=== PATIENT | female | born 2000 | race Caucasian/White ===

== ENCOUNTER 2018-07-27 00:04 | Emergency (ER) | payer SELFPAY ==
--- NOTE | 2018-07-27 00:43 | EDM.PDOC ---
ED HPI GENERAL MEDICAL PROBLEM - General Chief Complaint: Abdominal Pain Stated Complaint: ABD PAIN Time Seen by Provider: 07/27/18 00:34 Source of Information: Reports: Patient History Limitations: Reports: No Limitations - History of Present Illness INITIAL COMMENTS - FREE TEXT/NARRATIVE: Patient presents to the ER with complaints of right side abdominal pain. States awoke her at 0430 yesterday with sudden crampy pain. She states she has a constant ache with more crampy pain at times. No nausea/vomiting/diarrhea or constipation. Did have normal BM earlier today, no blood noted. Denies urinary complaints. Last LMP a month ago. Is a 1 para 0 with miscarriage and resulting D & C. Denies any fevers. Was able to eat today. Duration: Day(s):, Waxing/Waning Location: Reports: Abdomen Quality: Reports: Sharp, Stabbing Severity: Moderate Associated Symptoms: Denies: Chest Pain, Cough, Fever/Chills, Loss of Appetite, Nausea/Vomiting, Shortness of Breath, Weakness Right Abdominal Pain Score (Numeric/FACES): 5 - Related Data Allergies Allergy/AdvReac Type Severity Reaction Status Date / Time No Known Allergies Allergy Verified 07/27/18 00:07 Home Meds: Home Meds Etonogestrel [Nexplanon] 68 mg IMPLANT ASDIRECTED 07/27/18 [History] Past Medical History HEENT History: Reports: None Respiratory History: Reports: Asthma Genitourinary History: Reports: None 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 Psychiatric History: Reports: Anxiety, Depression Dermatologic History: Reports: Eczema, Other (See Below) Other Dermatologic History: hx ringworm in the past - Past Surgical History HEENT Surgical History: Reports: Adenoidectomy, Tonsillectomy Respiratory Surgical History: Reports: None Female Surgical History: Reports: D&C Dermatological Surgical History: Reports: None Social & Family History - Family History Family Medical History: Noncontributory - Tobacco Use Smoking Status *Q: Current Every Day Smoker Years of Tobacco use: 5 Packs/Tins Daily: 1 - Caffeine Use Caffeine Use: Reports: Soda - Recreational Drug Use Recreational Drug Use: No ED ROS GENERAL - Review of Systems Review Of Systems: See Below Constitutional: Denies: Fever, Chills, Malaise, Weakness, Decreased Appetite HEENT: Reports: No Symptoms Respiratory: Denies: Shortness of Breath, Cough Cardiovascular: Denies: Chest Pain, Lightheadedness Endocrine: Denies: Fatigue GI/Abdominal: Reports: Abdominal Pain. Denies: Constipation, Diarrhea, Nausea, Vomiting : Denies: Dysuria, Frequency Musculoskeletal: Reports: No Symptoms Skin: Reports: No Symptoms Neurological: Reports: No Symptoms ED EXAM, GI/ABD - Physical Exam Exam: See Below Exam Limited By: No Limitations General Appearance: Alert, WD/WN, No Apparent Distress Ears: Normal External Exam, Normal TMs Nose: Normal Inspection, Normal Mucosa, No Blood Throat/Mouth: Normal Inspection, Normal Oropharynx Head: Normocephalic Neck: Normal Inspection, Supple, Non-Tender Respiratory/Chest: No Respiratory Distress, Lungs Clear, Normal Breath Sounds Cardiovascular: Regular Rate, Rhythm GI/Abdominal Exam: Normal Bowel Sounds, Soft, Non-Tender Extremities: Normal Inspection, Normal Capillary Refill Neurological: Alert, Oriented Course - Vital Signs Last Recorded V/S: Last Vital Signs Temp 99.8 F 07/27/18 00:04 Pulse 100 07/27/18 00:04 Resp 18 07/27/18 00:04 BP 138/93 H 07/27/18 00:04 Pulse Ox 99 07/27/18 00:04 - Orders/Labs/Meds Orders: Active Orders 24 hr Category Date Time Status Abdomen 2V AP Flat Upright [CR] Stat Exams 07/27/18 00:16 Ordered Labs: Laboratory Tests 07/27/18 07/27/18 07/27/18 Range/Units 00:16 00:16 00:16 WBC 9.3 (5.0-10.0) 10^3/uL RBC 5.34 (4.00-5.50) 10^6/uL Hgb 16.6 H (12.0-16.0) g/dL Hct 47.7 H (37.0-47.0) % MCV 89.3 (82.0-94.0) fL MCH 31.1 (27.0-32.0) pg MCHC 34.8 (33.0-38.0) g/dL RDW Coeff of Anthony 12.5 (11.0-15.0) % Plt Count 283 (150-400) 10^3/uL Neut % (Auto) 63.9 (35-85) % Lymph % (Auto) 25.2 (10-55) % [place] % (Auto) 9.1 (0-16) % Eos % (Auto) 1.5 (0-5) % Baso % (Auto) 0.3 (0-3) % Neut # (Auto) 5.93 (1.80-7.00) 10^3/uL Lymph # (Auto) 2.34 (1.00-4.80) 10^3/uL [place] # (Auto) 0.85 H (0.00-0.80) 10^3/uL Eos # (Auto) 0.14 (0.00-0.45) 10^3/uL Baso # (Auto) 0.03 10^3/uL Sodium 143 (136-145) mEq/L Potassium 3.8 (3.5-5.0) mEq/L Chloride 104 (98-106) mEq/L Carbon Dioxide 30 (21-32) mmol/L BUN 12 (7-18) mg/dL Creatinine 0.9 (0.6-1.0) mg/dL Est Cr Clr Drug Dosing 100.58 mL/min Estimated GFR (MDRD) > 60 (>=60) mL/min Glucose 89 (75-99) mg/dL Calcium 9.6 (8.4-10.1) mg/dL C-Reactive Protein < 0.2 L (0.2-0.8) mg/dL Urine Color Dark yellow (YELLOW) Urine Appearance Clear (CLEAR) Urine pH 5.5 (4.5-8.0) Ur Specific [place] >= 1.030 H (1.003-1.020) Urine Protein 100 H (NEGATIVE) mg/dL Urine Glucose (UA) Negative (NEGATIVE) mg/dL Urine Ketones Trace H (NEGATIVE) mg/dL Urine Occult Blood Negative (NEGATIVE) Urine Nitrite Negative (NEGATIVE) Urine Bilirubin Negative (NEGATIVE) Urine Urobilinogen 0.2 (0.2-1.0) EU/dL Ur Leukocyte Esterase Negative (NEGATIVE) Urine RBC Not seen (0-5) /HPF Urine WBC Not seen (0-5) /HPF Ur Squamous Epith Cells Many H (NOT SEEN) /HPF Amorphous Sediment Moderate H (NOT SEEN) /HPF Urine Bacteria Few H (NOT SEEN) /HPF Urine HCG, Qual 07/27/18 Range/Units 00:38 WBC (5.0-10.0) 10^3/uL RBC (4.00-5.50) 10^6/uL Hgb (12.0-16.0) g/dL Hct (37.0-47.0) % MCV (82.0-94.0) fL MCH (27.0-32.0) pg MCHC (33.0-38.0) g/dL RDW Coeff of Anthony (11.0-15.0) % Plt Count (150-400) 10^3/uL Neut % (Auto) (35-85) % Lymph % (Auto) (10-55) % [place] % (Auto) (0-16) % Eos % (Auto) (0-5) % Baso % (Auto) (0-3) % Neut # (Auto) (1.80-7.00) 10^3/uL Lymph # (Auto) (1.00-4.80) 10^3/uL [place] # (Auto) (0.00-0.80) 10^3/uL Eos # (Auto) (0.00-0.45) 10^3/uL Baso # (Auto) 10^3/uL Sodium (136-145) mEq/L Potassium (3.5-5.0) mEq/L Chloride (98-106) mEq/L Carbon Dioxide (21-32) mmol/L BUN (7-18) mg/dL Creatinine (0.6-1.0) mg/dL Est Cr Clr Drug Dosing mL/min Estimated GFR (MDRD) (>=60) mL/min Glucose (75-99) mg/dL Calcium (8.4-10.1) mg/dL C-Reactive Protein (0.2-0.8) mg/dL Urine Color (YELLOW) Urine Appearance (CLEAR) Urine pH (4.5-8.0) Ur Specific [place] (1.003-1.020) Urine Protein (NEGATIVE) mg/dL Urine Glucose (UA) (NEGATIVE) mg/dL Urine Ketones (NEGATIVE) mg/dL Urine Occult Blood (NEGATIVE) Urine Nitrite (NEGATIVE) Urine Bilirubin (NEGATIVE) Urine Urobilinogen (0.2-1.0) EU/dL Ur Leukocyte Esterase (NEGATIVE) Urine RBC (0-5) /HPF Urine WBC (0-5) /HPF Ur Squamous Epith Cells (NOT SEEN) /HPF Amorphous Sediment (NOT SEEN) /HPF Urine Bacteria (NOT SEEN) /HPF Urine HCG, Qual Negative - Re-Assessments/Exams Free Text/Narrative Re-Assessment/Exam: 07/27/18 00:58 Labs are all normal. test negative. Specific gravity is high. Xrays shows moderate amount of stool, no obstruction. Advised to push fluids. Laxative or Miralax as needed. Departure - Departure Time of Disposition: 01:00 Disposition: Home, Self-Care 01 Condition: Good Clinical Impression: Constipation - Discharge Information *PRESCRIPTION DRUG MONITORING PROGRAM REVIEWED*: No *COPY OF PRESCRIPTION DRUG MONITORING REPORT IN PATIENT SHANIQUA: No Instructions: Constipation, Adult Forms: ED Department Discharge Additional Instructions: 1. Push fluids 2. Take Miralax or a laxative for constipation 3. If pain persists, follow up in clinic in either [place] or [place] - My Orders Last 24 Hours: My Active Orders 07/27/18 00:16 Abdomen 2V AP Flat Upright [CR] Stat - Assessment/Plan Last 24 Hours: My Active Orders 07/27/18 00:16 Abdomen 2V AP Flat Upright [CR] Stat
[2018-07-27 00:50] LABS: CHLORIDE,CL 104 mEq/L (98-106); SODIUM,NA 143 mEq/L (136-145)
== END 2018-07-27 01:09 | disposition home or self-care (01) ==
LOC: CC.ED 00:04
DX: K59.00 Constipation, unspecified (principal)
CPT/HCPCS: 36415; 74019; 80048; 81001; 81025; 85025; 86140; 99284-25

== ENCOUNTER 2019-10-23 03:21 | Emergency (ER) | payer SELFPAY ==
[2019-10-23 04:04] LABS: CHLORIDE,CL 105 mEq/L (98-106); SODIUM,NA 143 mEq/L (136-145)
--- NOTE | 2019-10-23 04:21 | EDM.PDOC ---
ED HPI GENERAL MEDICAL PROBLEM - General Chief Complaint: Abdominal Pain Stated Complaint: abdominal pain Time Seen by Provider: 10/23/19 04:00 Source of Information: Reports: Patient History Limitations: Reports: No Limitations - History of Present Illness INITIAL COMMENTS - FREE TEXT/NARRATIVE: Patient presents to ER with complaints of acute abdominal pain. States was lying down and went to sit up and had intense pain that "dropped me to my knees". Started around 0200 but admits seems to be easing up now. Denies any fever. No nausea/vomiting/diarrhea/constipation. No history of ovarian cysts. Last LMP was 2 weeks ago. Had BM yesterday that was normal. Denies any urinary complaints. Did take ibuprofen at home prior to calling EMS. Onset: Today, Sudden Duration: Hour(s):, Improving Location: Reports: Abdomen Quality: Reports: Stabbing Severity: Severe Associated Symptoms: Denies: Confusion, Chest Pain, Cough, Fever/Chills, Loss of Appetite, Nausea/Vomiting, Shortness of Breath Treatments DIRECT CUSTOMER SERVICE REPRESENTATIVE: Reports: NSAIDS Pelvic Pain Score (Numeric/FACES): 4 - Related Data Allergies Allergy/AdvReac Type Severity Reaction Status Date / Time No Known Allergies Allergy Verified 10/23/19 03:25 Home Meds: Home Meds . 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 Musculoskeletal History: Reports: Other (See Below) Other Musculoskeletal History: SCOLIOSIS Psychiatric History: Reports: Anxiety, Depression Dermatologic History: Reports: Eczema, Other (See Below) Other Dermatologic History: hx ringworm in the past - Past Surgical History HEENT Surgical History: Reports: Adenoidectomy, Tonsillectomy Respiratory Surgical History: Reports: None Female Surgical History: Reports: D&C Musculoskeletal Surgical History: Reports: None Dermatological Surgical History: Reports: None Social & Family History - Family History Family Medical History: Noncontributory - Tobacco Use Smoking Status *Q: Current Every Day Smoker Years of Tobacco use: 6 Packs/Tins Daily: 1 - Caffeine Use Caffeine Use: Reports: Coffee Caffeine Use Comment: daily - Recreational Drug Use Recreational Drug Use: No ED ROS GENERAL - Review of Systems Review Of Systems: See Below Constitutional: Denies: Fever, Chills, Malaise, Weakness, Decreased Appetite HEENT: Reports: No Symptoms Respiratory: Denies: Shortness of Breath, Cough Cardiovascular: Denies: Chest Pain, Edema, Lightheadedness Endocrine: Denies: Fatigue GI/Abdominal: Reports: Abdominal Pain. Denies: Constipation, Diarrhea, Nausea, Vomiting : Reports: No Symptoms Musculoskeletal: Reports: No Symptoms ED EXAM, GI/ABD - Physical Exam Exam: See Below Exam Limited By: No Limitations General Appearance: Alert, WD/WN, No Apparent Distress Ears: Normal External Exam, Normal TMs Nose: Normal Inspection, Normal Mucosa, No Blood Throat/Mouth: Normal Inspection, Normal Oropharynx Head: Normocephalic Neck: Normal Inspection, Supple, Non-Tender Respiratory/Chest: No Respiratory Distress, Lungs Clear, Normal Breath Sounds Cardiovascular: Regular Rate, Rhythm GI/Abdominal Exam: Normal Bowel Sounds, Soft, Tender (bilateral lower quadrants.) Neurological: Alert, Oriented Skin Exam: Warm, Dry Course - Vital Signs Last Recorded V/S: Last Vital Signs Temp 98.7 F 10/23/19 03:25 Pulse 81 10/23/19 03:25 Resp 16 10/23/19 03:25 BP 119/71 10/23/19 03:25 Pulse Ox 99 10/23/19 03:25 - Orders/Labs/Meds Orders: Active Orders 24 hr Category Date Time Status Abdomen 2V AP Flat Upright [CR] Stat Exams 10/23/19 03:37 Ordered Labs: Laboratory Tests 10/23/19 10/23/19 10/23/19 Range/Units 03:39 03:39 03:50 WBC 10.1 H (5.0-10.0) 10^3/uL RBC 4.89 (4.00-5.50) 10^6/uL Hgb 15.4 (12.0-16.0) g/dL Hct 44.8 (37.0-47.0) % MCV 91.6 (82.0-94.0) fL MCH 31.5 (27.0-32.0) pg MCHC 34.4 (33.0-38.0) g/dL RDW Coeff of Anthony 12.2 (11.0-15.0) % Plt Count 268 (150-400) 10^3/uL Neut % (Auto) 64.0 (35-85) % Lymph % (Auto) 23.6 (10-55) % [place] % (Auto) 9.9 (0-16) % Eos % (Auto) 2.3 (0-5) % Baso % (Auto) 0.2 (0-3) % Neut # (Auto) 6.44 (1.80-7.00) 10^3/uL Lymph # (Auto) 2.38 (1.00-4.80) 10^3/uL [place] # (Auto) 1.00 H (0.00-0.80) 10^3/uL Eos # (Auto) 0.23 (0.00-0.45) 10^3/uL Baso # (Auto) 0.02 10^3/uL Sodium (136-145) mEq/L Potassium (3.5-5.0) mEq/L Chloride (98-106) mEq/L Carbon Dioxide (21-32) mmol/L BUN (7-18) mg/dL Creatinine (0.6-1.0) mg/dL Est Cr Clr Drug Dosing mL/min Estimated GFR (MDRD) (>=60) mL/min Glucose (75-99) mg/dL Calcium (8.4-10.1) mg/dL Total Bilirubin (0.0-1.0) mg/dL AST (15-37) U/L ALT (12-78) U/L Alkaline Phosphatase (46-116) U/L C-Reactive Protein (0.2-0.8) mg/dL Total Protein (6.4-8.2) g/dL Albumin (3.4-5.0) g/dL Urine Color Yellow (YELLOW) Urine Appearance Clear (CLEAR) Urine pH 6.5 (4.5-8.0) Ur Specific [place] 1.025 H (1.003-1.020) Urine Protein Negative (NEGATIVE) mg/dL Urine Glucose (UA) Negative (NEGATIVE) mg/dL Urine Ketones Negative (NEGATIVE) mg/dL Urine Occult Blood Negative (NEGATIVE) Urine Nitrite Negative (NEGATIVE) Urine Bilirubin Negative (NEGATIVE) Urine Urobilinogen 0.2 (0.2-1.0) EU/dL Ur Leukocyte Esterase Negative (NEGATIVE) Urine RBC 0-5 (0-5) /HPF Urine WBC 0-5 (0-5) /HPF Ur Epithelial Cells Moderate H (NOT SEEN) /HPF Urine Bacteria Occasional H (NOT SEEN) /HPF Urine HCG, Qual Negative 10/23/19 Range/Units 03:50 WBC (5.0-10.0) 10^3/uL RBC (4.00-5.50) 10^6/uL Hgb (12.0-16.0) g/dL Hct (37.0-47.0) % MCV (82.0-94.0) fL MCH (27.0-32.0) pg MCHC (33.0-38.0) g/dL RDW Coeff of Anthony (11.0-15.0) % Plt Count (150-400) 10^3/uL Neut % (Auto) (35-85) % Lymph % (Auto) (10-55) % [place] % (Auto) (0-16) % Eos % (Auto) (0-5) % Baso % (Auto) (0-3) % Neut # (Auto) (1.80-7.00) 10^3/uL Lymph # (Auto) (1.00-4.80) 10^3/uL [place] # (Auto) (0.00-0.80) 10^3/uL Eos # (Auto) (0.00-0.45) 10^3/uL Baso # (Auto) 10^3/uL Sodium 143 (136-145) mEq/L Potassium 3.9 (3.5-5.0) mEq/L Chloride 105 (98-106) mEq/L Carbon Dioxide 29 (21-32) mmol/L BUN 14 (7-18) mg/dL Creatinine 0.9 (0.6-1.0) mg/dL Est Cr Clr Drug Dosing 99.74 mL/min Estimated GFR (MDRD) > 60 (>=60) mL/min Glucose 94 (75-99) mg/dL Calcium 9.3 (8.4-10.1) mg/dL Total Bilirubin 0.3 (0.0-1.0) mg/dL AST 18 (15-37) U/L ALT 24 (12-78) U/L Alkaline Phosphatase 86 (46-116) U/L C-Reactive Protein 0.3 (0.2-0.8) mg/dL Total Protein 6.8 (6.4-8.2) g/dL Albumin 3.8 (3.4-5.0) g/dL Urine Color (YELLOW) Urine Appearance (CLEAR) Urine pH (4.5-8.0) Ur Specific [place] (1.003-1.020) Urine Protein (NEGATIVE) mg/dL Urine Glucose (UA) (NEGATIVE) mg/dL Urine Ketones (NEGATIVE) mg/dL Urine Occult Blood (NEGATIVE) Urine Nitrite (NEGATIVE) Urine Bilirubin (NEGATIVE) Urine Urobilinogen (0.2-1.0) EU/dL Ur Leukocyte Esterase (NEGATIVE) Urine RBC (0-5) /HPF Urine WBC (0-5) /HPF Ur Epithelial Cells (NOT SEEN) /HPF Urine Bacteria (NOT SEEN) /HPF Urine HCG, Qual - Re-Assessments/Exams Free Text/Narrative Re-Assessment/Exam: 10/23/19 04:21 Labs are all normal. Flat and upright shows moderate amount of stool. No obstruction. Advised patient of results. Recommend push fluids. Miralax or stool softener. Departure - Departure Time of Disposition: 04:23 Disposition: Home, Self-Care 01 Condition: Good Clinical Impression: Constipation - Discharge Information *PRESCRIPTION DRUG MONITORING PROGRAM REVIEWED*: No *COPY OF PRESCRIPTION DRUG MONITORING REPORT IN PATIENT SHANIQUA: No Instructions: Constipation, Adult Referrals: PCP,None [Primary Care Provider] - Additional Instructions: 1. Push fluids 2. Increase fiber in diet 3. Miralax or stool softener until having consistent good bowel movements 4. Follow up if any concerns. Sepsis Event Note (ED) - Evaluation Sepsis Screening Result: No Definite Risk - Focused Exam Vital Signs: Vital Signs Temp Pulse Resp BP Pulse Ox 10/23/19 03:25 98.7 F 81 16 119/71 99 - My Orders Last 24 Hours: My Active Orders 10/23/19 03:37 Abdomen 2V AP Flat Upright [CR] Stat - Assessment/Plan Last 24 Hours: My Active Orders 10/23/19 03:37 Abdomen 2V AP Flat Upright [CR] Stat
== END 2019-10-23 05:15 | disposition home or self-care (01) ==
LOC: CC.ED 03:21
DX: K59.00 Constipation, unspecified (principal); F17.210 Nicotine dependence, cigarettes, uncomplicated; J45.909 Unspecified asthma, uncomplicated; M41.9 Scoliosis, unspecified
CPT/HCPCS: 36415; 74019; 80053; 81001; 81025; 85025; 86140; 99284-25